=== PATIENT | male | born 1990 | race Caucasian/White ===

== ENCOUNTER 2017-12-12 14:35 | Observation (INO) | payer BC ==
[2017-12-12] MEDS ORDERED: SODIUM CHLORIDE 0.9% 1,000 ML IV STA ×2 (14:58→18:45)
[2017-12-12] MEDS ORDERED: RX INFO: IV CONTRAST WAS GIVEN 1 EACH MISC MISCELLANE PRN (14:59)
--- NOTE | 2017-12-12 15:04 | ED ---
General Adult HPI - General Chief complaint: Abdominal Pain Stated complaint: poss appendicitis, sent by dr poon Time Seen by Provider: 12/12/17 14:46 Source: patient, RN notes reviewed Mode of arrival: ambulatory Limitations: no limitations - History of Present Illness Initial comments: 27 yo male presents to the ER with cc of left lower quadrant abdominal pain. Patient states that he's had this since Monday. There is been nausea vomiting without diarrhea. No fever. He does have a history of hernia surgery to the right side in the past. He went to see his doctor was referred here for concern for appendicitis. He denies any other symptoms at this time with this. Patient denies any recent fever, chills, shortness of breath, chest pain, back pain,numbness or tingling, dysuria or hematuria, constipation or diarrhea, headaches or visual changes, or any other current symptoms. - Related Data Home Medications Medication Instructions Recorded Confirmed No Known Home Medications [No 12/12/17 12/12/17 Known Home Medications] Allergies Allergy/AdvReac Type Severity Reaction Status Date / Time No Known Allergies Allergy Verified 12/12/17 15:34 Review of Systems ROS Statement: Those systems with pertinent positive or pertinent negative responses have been documented in the HPI. ROS Other: All systems not noted in ROS Statement are negative. Past Medical History Additional Past Medical History / Comment(s): Hemophilia History of Any Multi-Drug Resistant Organisms: None Reported Additional Past Surgical History / Comment(s): Hip Past Psychological History: No Psychological Hx Reported Smoking Status: Never smoker Past Alcohol Use History: Occasional Past Drug Use History: None Reported General Exam - General Exam Comments Initial Comments: General: The patient is awake and alert, in no distress, and does not appear acutely ill. Eye: Pupils are equal, round and reactive to light, extra-ocular movements are intact; there is normal conjunctiva bilaterally. No signs of icterus. Ears, nose, mouth and throat: There are moist mucous membranes. Neck: The neck is supple, there is no tenderness. Cardiovascular: There is a regular rate and rhythm. No murmur, rub or gallop is appreciated. Respiratory: Lungs are clear to auscultation, respirations are non-labored, breath sounds are equal. No wheezes, stridor, rales, or rhonchi. Gastrointestinal: Soft, non-distended, tenderness in right lower quadrant of the abdomen without masses or organomegaly noted. There is no rebound or guarding present. No CVA tenderness. Bowel sounds are unremarkable. Back: There is no tenderness to palpation in the midline. There is no obvious deformity. No rashes noted. Musculoskeletal: Normal ROM, no tenderness, There is no pedal edema. There is no calf tenderness or swelling. Sensation intact. Pulses equal bilaterally 2+. Neurological: CN II-XII intact, There are no obvious motor or sensory deficits. Coordination appears grossly intact. Speech is normal. Skin: Skin is warm and dry and no rashes or lesions are noted. Psychiatric: Cooperative, appropriate mood & affect, normal judgment. Limitations: no limitations Course Vital Signs 12/12/17 14:41 Temperature 97.8 F Pulse Rate 78 Respiratory 16 Rate Blood Pressure 130/84 O2 Sat by Pulse 99 Oximetry Medical Decision Making - Medical Decision Making 27-year-old male presents for abdominal pain. At this time CAT scan is been reviewed and on-call surgery was contacted. This time we will patient with antibiotics. Patient is in agreement this plan all questions have been answered. Patient will be made at this time. - Lab Data Result diagrams: 12/12/17 15:15 12/12/17 15:15 Lab Results 12/12/17 12/12/17 12/12/17 Range/Units 15:15 15:15 15:15 WBC 6.5 (3.8-10.6) k/uL RBC 5.46 (4.30-5.90) m/uL Hgb 16.7 (13.0-17.5) gm/dL Hct 45.6 (39.0-53.0) % MCV 83.6 (80.0-100.0) fL MCH 30.7 (25.0-35.0) pg MCHC 36.7 (31.0-37.0) g/dL RDW 12.1 (11.5-15.5) % Plt Count 232 (150-450) k/uL Neutrophils % 72 % Lymphocytes % 19 % Monocytes % 4 % Eosinophils % 3 % Basophils % 0 % Neutrophils # 4.7 (1.3-7.7) k/uL Lymphocytes # 1.2 (1.0-4.8) k/uL Monocytes # 0.3 (0-1.0) k/uL Eosinophils # 0.2 (0-0.7) k/uL Basophils # 0.0 (0-0.2) k/uL PT 10.5 (9.0-12.0) sec INR 1.1 (<1.2) APTT 30.7 H (22.0-30.0) sec Sodium 142 (137-145) mmol/L Potassium 3.9 (3.5-5.1) mmol/L Chloride 101 (98-107) mmol/L Carbon Dioxide 25 (22-30) mmol/L Anion Gap 16 mmol/L BUN 13 (9-20) mg/dL Creatinine 0.88 (0.66-1.25) mg/dL Est GFR (CKD-EPI)AfAm >90 (>60 ml/min/1.73 sqM) Est GFR (CKD-EPI)NonAf >90 (>60 ml/min/1.73 sqM) Glucose 88 (74-99) mg/dL Calcium 10.2 (8.4-10.2) mg/dL Total Bilirubin 0.7 (0.2-1.3) mg/dL AST 26 (17-59) U/L ALT 31 (21-72) U/L Alkaline Phosphatase 70 (38-126) U/L Total Protein 7.9 (6.3-8.2) g/dL Albumin 4.9 (3.5-5.0) g/dL Amylase 53 (30-110) U/L Lipase 149 (23-300) U/L Urine Color Urine Appearance (Clear) Urine pH (5.0-8.0) Ur Specific [place] (1.001-1.035) Urine Protein (Negative) Urine Glucose (UA) (Negative) Urine Ketones (Negative) Urine Blood (Negative) Urine Nitrite (Negative) Urine Bilirubin (Negative) Urine Urobilinogen (<2.0) mg/dL Ur Leukocyte Esterase (Negative) 12/12/17 Range/Units 15:15 WBC (3.8-10.6) k/uL RBC (4.30-5.90) m/uL Hgb (13.0-17.5) gm/dL Hct (39.0-53.0) % MCV (80.0-100.0) fL MCH (25.0-35.0) pg MCHC (31.0-37.0) g/dL RDW (11.5-15.5) % Plt Count (150-450) k/uL Neutrophils % % Lymphocytes % % Monocytes % % Eosinophils % % Basophils % % Neutrophils # (1.3-7.7) k/uL Lymphocytes # (1.0-4.8) k/uL Monocytes # (0-1.0) k/uL Eosinophils # (0-0.7) k/uL Basophils # (0-0.2) k/uL PT (9.0-12.0) sec INR (<1.2) APTT (22.0-30.0) sec Sodium (137-145) mmol/L Potassium (3.5-5.1) mmol/L Chloride (98-107) mmol/L Carbon Dioxide (22-30) mmol/L Anion Gap mmol/L BUN (9-20) mg/dL Creatinine (0.66-1.25) mg/dL Est GFR (CKD-EPI)AfAm (>60 ml/min/1.73 sqM) Est GFR (CKD-EPI)NonAf (>60 ml/min/1.73 sqM) Glucose (74-99) mg/dL Calcium (8.4-10.2) mg/dL Total Bilirubin (0.2-1.3) mg/dL AST (17-59) U/L ALT (21-72) U/L Alkaline Phosphatase (38-126) U/L Total Protein (6.3-8.2) g/dL Albumin (3.5-5.0) g/dL Amylase (30-110) U/L Lipase (23-300) U/L Urine Color Light Yellow Urine Appearance Clear (Clear) Urine pH 6.0 (5.0-8.0) Ur Specific [place] 1.008 (1.001-1.035) Urine Protein Negative (Negative) Urine Glucose (UA) Negative (Negative) Urine Ketones Negative (Negative) Urine Blood Negative (Negative) Urine Nitrite Negative (Negative) Urine Bilirubin Negative (Negative) Urine Urobilinogen <2.0 (<2.0) mg/dL Ur Leukocyte Esterase Negative (Negative) Disposition Clinical Impression: Right lower quadrant abdominal pain Disposition: ADMITTED IP TO THIS [facility] Condition: Stable Referrals: Gilmar Poon MD [Primary Care Provider] - 1-2 days Decision Date: 12/12/17 Decision Time: 18:26
[2017-12-12 15:29] LABS: Basophils % (A) 0 %; Eosinophils # (A) 0.2 k/uL (0-0.7); Eosinophils % (A) 3 %; HCT 45.6 % (39.0-53.0); HGB 16.7 gm/dL (13.0-17.5); Lymphocytes # (A) 1.2 k/uL (1.0-4.8); Lymphocytes % (A) 19 %; MCH 30.7 pg (25.0-35.0); MCHC 36.7 g/dL (31.0-37.0); MCV 83.6 fL (80.0-100.0); Mean Platelet Volume 6.7; Monocytes # (A) 0.3 k/uL (0-1.0); Monocytes % (A) 4 %; Neutrophils # (A) 4.7 k/uL (1.3-7.7); Neutrophils % (A) 72 %; Platelet Count 232 k/uL (150-450); RBC 5.46 m/uL (4.30-5.90); RDW 12.1 % (11.5-15.5); WBC 6.5 k/uL (3.8-10.6)
[2017-12-12 15:30] LABS: Appearance,Urine Clear (Clear); Bilirubin,Urine Negative (Negative); Blood,Urine Negative (Negative); Color,Urine Light Yellow; Glucose,Urine (UA) Negative (Negative); Ketones,Urine Negative (Negative); Leukocyte Esterase,Urine Negative (Negative); Nitrite,Urine Negative (Negative); Protein,Urine Negative (Negative); Specific Gravity,Urine 1.008 (1.001-1.035); Urobilinogen,Urine <2.0 mg/dL (<2.0)
[2017-12-12 15:38] LABS: INR 1.1 (<1.2); Partial Thromboplastin Time 30.7 sec (22.0-30.0); Prothrombin Time 10.5 sec (9.0-12.0)
[2017-12-12 15:41] LABS: ALT 31 U/L (21-72); AST 26 U/L (17-59); Albumin 4.9 g/dL (3.5-5.0); Alkaline Phosphatase 70 U/L (38-126); Amylase 53 U/L (30-110); Anion Gap 16 mmol/L; Blood Urea Nitrogen 13 mg/dL (9-20); Calcium 10.2 mg/dL (8.4-10.2); Carbon Dioxide 25 mmol/L (22-30); Chloride 101 mmol/L (98-107); Glucose 88 mg/dL (74-99); Lipase 149 U/L (23-300); Potassium 3.9 mmol/L (3.5-5.1); Sodium 142 mmol/L (137-145); Total Bilirubin 0.7 mg/dL (0.2-1.3); Total Protein 7.9 g/dL (6.3-8.2)
--- NOTE | 2017-12-12 16:25 | CT ---
EXAMINATION TYPE: CT abdomen pelvis w con DATE OF EXAM: 12/12/2017 COMPARISON: NONE INDICATION: Right lower quadrant pain x 3 days. DLP: 1286 mGycm, Automated exposure control for dose reduction was used. CONTRAST: 100 mL of Isovue M300. Study performed without Oral Contrast TECHNIQUE: Axial images were obtained from above the diaphragm to the pubic rami in the axial plane a t 5 mm thick sections. Reconstructed images are reviewed on the computer in the coronal plane. FINDINGS: Limited CT sections are obtained the lung bases. The lung bases are clear. CT ABDOMEN: Liver: Normal Spleen: Normal Pancreas: Normal Adrenal glands: The adrenal glands are normal. Gallbladder: Normal Kidneys: No masses are evident. No hydronephrosis is present. No cysts are present. Delayed images were obtained through the kidneys, which remain unremarkable. Aorta: Normal Inferior vena cava: Normal. CT PELVIS: Loops of bowel within the abdomen and pelvis are normal. There are loops of bowel which are incom pletely distended or lack oral contrast limiting their evaluation. There appear to be some inflammato ry change adjacent to the distal sigmoid colon junction with the rectum. Suspicious diverticulitis ho wever is not identified. Appendix: Not identified. No dilated tubular structures are evident. There is some mild inflammatory change in this region. Correlate with the patient's surgical history. Urinary bladder: Normal. Genitourinary structures: Prostate is normal. Osseous structures: No suspicious lytic or sclerotic lesions. IMPRESSIONS: 1. There is some nonspecific ill-defined inflammatory type change in the right lower quadrant and wi thin the right hemipelvis of uncertain etiology. The appendix is not identified although no suspiciou s dilated tubular structure is evident. Clinical management of any suspected appendicitis will be req uired. The additional inflammatory changes adjacent to the distal superior sigmoid colon, mild divert iculitis could be considered. Significant diverticular changes are not evident within the sigmoid col on in this patient however. Clinical management is suggested.
--- NOTE | 2017-12-12 18:19 | P.GSHP ---
History of Present Illness H&P Date: 12/12/17 Patient is a 27-year-old white male who presents to the emergency room with a complaint of a several-day history of periumbilical lower abdominal discomfort. The patient denies any fever or chills. The patient denies any nausea or vomiting. The patient states he ate last yesterday but is hungry today. The patient had a computed tomography scan performed of the abdomen and pelvis which revealed nonspecific ill-defined inflammatory type changes in the right lower quadrant and within the right hemipelvis of uncertain etiology. Appendix was not seen although no suspicious dilated tubular structure was evident. Additional inflammation or toes changes adjacent to distal superior sigmoid colon and mild diverticulitis could be considered. The patient's white blood cell count is 6.5. The patient has a history of hemophilia. Past surgical history: 1. Hip surgery 2. Hernia repair Past medical history: Hemophilia a mild he states that it was necessary to take factor VIII before any procedures ALLERGIES: Negative Social history: Smoking: Negative Alcohol: And weekends Marijuana: Negative Review of systems: HEENT: Negative Lungs: Negative Heart: Negative GI: As above : Negative - Constitutional Constitutional: Reports as per HPI - Cardiovascular Cardiovascular: Reports as per HPI - Respiratory Respiratory: Reports as per HPI - Gastrointestinal Gastrointestinal: Reports as per HPI - Genitourinary (Female) Genitourinary: Reports as per HPI - Musculoskeletal Comment: hip surgery - Psychiatric Comment: No psych history noted - Hematologic/Lymphatic Comment: Hemophilia type A Past Medical History Additional Past Medical History / Comment(s): Hemophilia History of Any Multi-Drug Resistant Organisms: None Reported Additional Past Surgical History / Comment(s): Hip. hernia Past Psychological History: No Psychological Hx Reported Smoking Status: Never smoker Past Alcohol Use History: Occasional Past Drug Use History: None Reported Medications and Allergies Home Medications Medication Instructions Recorded Confirmed Type No Known Home Medications [No 12/12/17 12/12/17 History Known Home Medications] Allergies Allergy/AdvReac Type Severity Reaction Status Date / Time No Known Allergies Allergy Verified 12/12/17 15:34 Surgical - Exam Vital Signs Temp Pulse Resp BP Pulse Ox 97.8 F 78 16 130/84 99 12/12/17 14:41 12/12/17 14:41 12/12/17 14:41 12/12/17 14:41 12/12/17 14:41 - General well developed, well nourished, no distress - Eyes normal ocular movement - ENT normal pinna, normal nares, no hearing loss - Neck trachea midline, no venous distension - Respiratory normal expansion, normal respiratory effort, clear to auscultation - Cardiovascular Rhythm: regular Heart Sounds: normal: S1, S2 - Abdomen Mild tender to deep palpation in the lower midabdomen and lower right quadrant No guarding or rebound Abdomen: soft - Integumentary no rash, no growths - Psychiatric oriented to time, oriented to person, oriented to place Results - Labs 12/12/17 15:15 12/12/17 15:15 Abnormal Lab Results - Last 24 Hours (Table) 12/12/17 Range/Units 15:15 APTT 30.7 H (22.0-30.0) sec Diabetes panel 12/12/17 Range/Units 15:15 Sodium 142 (137-145) mmol/L Potassium 3.9 (3.5-5.1) mmol/L Chloride 101 (98-107) mmol/L Carbon Dioxide 25 (22-30) mmol/L BUN 13 (9-20) mg/dL Creatinine 0.88 (0.66-1.25) mg/dL Glucose 88 (74-99) mg/dL Calcium 10.2 (8.4-10.2) mg/dL AST 26 (17-59) U/L ALT 31 (21-72) U/L Alkaline Phosphatase 70 (38-126) U/L Total Protein 7.9 (6.3-8.2) g/dL Albumin 4.9 (3.5-5.0) g/dL Calcium panel 12/12/17 Range/Units 15:15 Calcium 10.2 (8.4-10.2) mg/dL Albumin 4.9 (3.5-5.0) g/dL Pituitary panel 12/12/17 Range/Units 15:15 Sodium 142 (137-145) mmol/L Potassium 3.9 (3.5-5.1) mmol/L Chloride 101 (98-107) mmol/L Carbon Dioxide 25 (22-30) mmol/L BUN 13 (9-20) mg/dL Creatinine 0.88 (0.66-1.25) mg/dL Glucose 88 (74-99) mg/dL Calcium 10.2 (8.4-10.2) mg/dL Adrenal panel 12/12/17 Range/Units 15:15 Sodium 142 (137-145) mmol/L Potassium 3.9 (3.5-5.1) mmol/L Chloride 101 (98-107) mmol/L Carbon Dioxide 25 (22-30) mmol/L BUN 13 (9-20) mg/dL Creatinine 0.88 (0.66-1.25) mg/dL Glucose 88 (74-99) mg/dL Calcium 10.2 (8.4-10.2) mg/dL Total Bilirubin 0.7 (0.2-1.3) mg/dL AST 26 (17-59) U/L ALT 31 (21-72) U/L Alkaline Phosphatase 70 (38-126) U/L Total Protein 7.9 (6.3-8.2) g/dL Albumin 4.9 (3.5-5.0) g/dL - Imaging CT scan - abdomen: report reviewed, image reviewed CT scan - pelvis: report reviewed, image reviewed Assessment and Plan Assessment: Impression/plan: 1. Lower abdominal and right lower quadrant abdominal pain/rule out appendicitis 2. Hemophilia A Plan: 1. Hematology consult 2. Admission and IV antibiotics and observation, patient does not have an acute abdomen at this time 3. Repeat CBC in a.m.
[2017-12-12 20:19] VITALS: BMI 25.2
[2017-12-13] MEDS: PIPERACILLIN-TAZOBACTAM 3.375 GM in DEXTROSE/WATER 1 50ML.BAG IVPB SCH ×2 (00:38→07:43)
[2017-12-13 03:20] VITALS: RESP 15
[2017-12-13 09:32] LABS: ALT 31 U/L (21-72); AST 20 U/L (17-59); Albumin 3.9 g/dL (3.5-5.0); Alkaline Phosphatase 61 U/L (38-126); Anion Gap 11 mmol/L; Blood Urea Nitrogen 12 mg/dL (9-20); Calcium 9.4 mg/dL (8.4-10.2); Carbon Dioxide 26 mmol/L (22-30); Chloride 104 mmol/L (98-107); Glucose 89 mg/dL (74-99); Potassium 4.3 mmol/L (3.5-5.1); Sodium 141 mmol/L (137-145); Total Bilirubin 0.8 mg/dL (0.2-1.3); Total Protein 6.5 g/dL (6.3-8.2)
[2017-12-13 09:35] LABS: Basophils % (A) 1 %; Eosinophils # (A) 0.1 k/uL (0-0.7); Eosinophils % (A) 2 %; HCT 45.3 % (39.0-53.0); HGB 15.7 gm/dL (13.0-17.5); Lymphocytes # (A) 0.7 k/uL (1.0-4.8); Lymphocytes % (A) 13 %; MCH 29.8 pg (25.0-35.0); MCHC 34.7 g/dL (31.0-37.0); MCV 85.9 fL (80.0-100.0); Mean Platelet Volume 6.4; Monocytes # (A) 0.4 k/uL (0-1.0); Monocytes % (A) 7 %; Neutrophils # (A) 4.2 k/uL (1.3-7.7); Neutrophils % (A) 75 %; Platelet Count 217 k/uL (150-450); RBC 5.28 m/uL (4.30-5.90); WBC 5.6 k/uL (3.8-10.6)
[2017-12-13] MEDS ORDERED: MORPHINE SULFATE 4MG/4ML SYRG IVP PRN (09:36)
[2017-12-13] MEDS ORDERED: SODIUM CHLORIDE 0.9% 1,000 ML IV SCH (09:45)
--- NOTE | 2017-12-13 10:59 | P.DS ---
Providers Date of admission: 12/12/17 18:25 Expected date of discharge: 12/13/17 Attending physician: Jane Granger Consults: 12/12/17 18:19 Consult Physician Urgent Consulting Provider: Victoriano Horta Consult Reason/Comments: patient with hemmophellia ? needs OR Do you want consulting provider notified?: Yes Primary care physician: Gilmar Nguyễn Hospital Course: 27-year-old presented to the emergency room with a chief complaint of developing for the last several days. Umbilical lower abdominal discomfort radiating to the right lower quadrant within the right hemipelvis. Patient gives a history of being hemophilia. CAT scan of the abdomen pelvis performed in the emergency room showed nonspecific ill-defined inflammatory type changes in the right lower quadrant within the right concha-pelvis appendix was not seen although no suspicious dilated tubular structure was evident. Patient's white count was 6.5. Patient continued to report having right lower quadrant abdominal discomfort. Increased discomfort with movement nausea sensation no emesis afebrile. Patient was seen by hematology service with recommendations patient be transferred to a tertiary center for higher level of care that if the patient needed to have any procedures done due to his hemophilia history would need to be given factor VIII infusions. Factor VIII infusions are not given at this hospital necessitating the need to transfer the patient to a tertiary center Past surgical history hip surgery, hernia repair per patient report procedure done at [facility]. Past medical history hemophilia with patient reporting it was necessary to have factor VIII before any procedures Impression discharge diagnosis Present on admission periumbilical lower abdominal pain radiating to the right lower quadrant several day duration suspect appendicitis History of a hemophilia History of prior hernia repair with factor VIII infusions given before procedure done at [facility] History of hip surgery with factor VIII infusions given before procedure done at [facility] The above impression and plan of care have been discussed and directed by signing physician. Tatiana Bolton nurse practitioner acting as scribe for signing physician. Patient Condition at Discharge: Stable Plan - Discharge Summary Discharge Rx Participant: Yes New Discharge Prescriptions: No Action No Known Home Medications [No Known Home Medications] Discharge Medication List No Known Home Medications [No Known Home Medications] 12/12/17 [History] Follow up Appointment(s)/Referral(s): Gilmar Nguyễn MD [Primary Care Provider] - 1-2 days Discharge Disposition: DC/TRNS INTERMEDIATE CARE FAC
[2017-12-13 11:10] VITALS: BP 118/66; PULSE 85; TEMP 98.1
--- NOTE | 2017-12-13 12:00 | P.CONS ---
History of Present Illness - Reason for Consult Consult date: 12/13/17 hemophilia A, needs surgery Requesting physician: Jane Granger - Chief Complaint abd pain x 3 days - History of Present Illness Mr. Gipson is a very pleasant 27-year-old male who does not follow with a Hemophilia clinic or a PCP. He has a history of mild hemophilia A. Patient had hernia repair in the , which was when he was diagnosed, denied bleeding crisis or event postoperatively at that time. He had hip surgery in 2010 in [place] and he received factor VIII preventatively postoperatively. Patient has strong family history with 2 bothers having same hemophilia diagnosis, no knowledge of spontaneous bleeds in the family. Patient states no personal spontaneous bleeds or hemarthrosis but, he does bruise easily with minor trauma. He came to the ER with c/o 3 days progressive lower abd pain, he denied fever, vomiting, diarrhea or constipation, his 10 point ROS is otherwise, he feels better today after receiving abx, he has not required pain medications. Patient has no other medical history, only the 2 surgeries. He is not on any medications. Review of Systems 14 point review of systems is as stated in HPI Past Medical History Past Medical History: Blood Disorder Additional Past Medical History / Comment(s): Hemophilia A reqiring factor VIII infusions prophylactically for surgical procedures History of Any Multi-Drug Resistant Organisms: None Reported Past Surgical History: Hernia Repair, Orthopedic Surgery Additional Past Surgical History / Comment(s): Right Hip Arthroplasty. Hernia Repair Past Anesthesia/Blood Transfusion Reactions: No Reported Reaction Past Psychological History: No Psychological Hx Reported Smoking Status: Never smoker Past Alcohol Use History: Occasional Past Drug Use History: None Reported - Past Family History Mother Family Medical History: Diabetes Mellitus Additional Family Medical History / Comment(s): Diet Controlled Type 2 Diabetes Father Family Medical History: Liver Disease Additional Family Medical History / Comment(s): Alcoholism Brother(s) Family Medical History: Blood Disorder Additional Family Medical History / Comment(s): Both 2 brothers have Hemophilia A Sister(s) Family Medical History: No Reported History Additional Family Medical History / Comment(s): 3 sisters - no medical problems Medications and Allergies Home Medications Medication Instructions Recorded Confirmed Type No Known Home Medications [No 12/12/17 12/12/17 History Known Home Medications] Allergies Allergy/AdvReac Type Severity Reaction Status Date / Time No Known Allergies Allergy Verified 12/12/17 15:34 Physical Exam Vitals: Vital Signs Temp Pulse Pulse Resp BP BP Pulse Ox 12/13/17 07:00 98.1 F 85 118/66 95 12/13/17 02:00 97.7 F 63 15 107/66 98 12/12/17 18:46 97.8 F 67 16 112/67 98 12/12/17 14:41 97.8 F 78 16 130/84 99 Intake and Output 12/12/17 12/13/17 12/13/17 22:59 06:59 14:59 Intake Total 703 Balance 703 Intake: Intake, IV Titration 163 Amount Piperacillin-Tazobactam 3 50 .375 gm In Dextrose/Water 1 50ml.bag @ 12.5 mls/hr IVPB Q8HR ARUN Rx#: [id number] Sodium Chloride 0.9% 1, 113 000 ml @ 100 mls/hr IV . Q10H STA Rx#:[id number] Oral 540 Other: Voiding Method Toilet # Voids 1 Weight 91.626 kg - Constitutional General appearance: average body habitus, cooperative, no acute distress - EENT Eyes: anicteric sclerae, EOMI, normal appearance ENT: hearing grossly normal, normal oropharynx - Neck Neck: no lymphadenopathy - Respiratory Respiratory: bilateral: CTA - Cardiovascular Rhythm: regular Heart sounds: normal: S1, S2 leg Peripheral Edema: bilateral: None - Gastrointestinal General gastrointestinal: soft Localized gastrointestinal: tender: RLQ (no rebound pain) - Integumentary Integumentary: normal - Neurologic Neurologic: CNII-XII intact - Musculoskeletal Musculoskeletal: strength equal bilaterally - Psychiatric Psychiatric: A&O x's 3, appropriate affect, intact judgment & insight Results CBC & Chem 7: 12/13/17 08:55 12/13/17 08:55 Labs: Abnormal Lab Results - Last 24 Hours (Table) 12/12/17 12/13/17 Range/Units 15:15 08:55 Lymphocytes # 0.7 L (1.0-4.8) k/uL APTT 30.7 H (22.0-30.0) sec Microbiology - Last 24 Hours (Table) 12/12/17 15:15 Urine Culture - Preliminary Urine,Voided CT scan - abdomen: report reviewed CT scan - pelvis: report reviewed Assessment and Plan (1) Hemophilia A Narrative/Plan: Patient has known hemophilia A, has been prophylactically given factor VIII for surgical procedures. Some records were assessable from [facility], patient did have low factor VIII assay, this did increase but, suspect factor VIII infusion as the increase was noted the day of patient's hip surgery. It has been clarified with pharmacy that factor VIII infusion is not available so, recommendation is for patient to be transferred. Case was discussed with surgical [employer] who communicated with Surgeon and plan is to transfer to [facility]. No acute hematological intervention is needed here. Dr. Russ discussed case with hematology team at [facility] It was discussed with the pt that he needs to establish care with a hemophilia clinic so that he has access with the specialized team. He will be provided him with quick access to the care he needs for his hemophilia. He verbalized understanding and will establish with Hemophilia clinic at [facility]. 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 I agree with dictators note, documented as a scribe.
== END 2017-12-13 12:22 ==
LOC: EC 14:35 → 3SUR 18:25
PROVIDERS: ADMIT Surgery; ATTEND Surgery
DX: R10.31 Right lower quadrant pain (principal); R10.32 Left lower quadrant pain; R10.33 Periumbilical pain; R11.2 Nausea with vomiting, unspecified; D66 Hereditary factor VIII deficiency; Z83.3 Family history of diabetes mellitus; Z96.641 Presence of right artificial hip joint
CPT/HCPCS: 99285; 96361 ×2; 96365; 96366; 36415; 80053 ×2; 82150; 83690; 85025 ×2; 85610; 85730; 81003; 87040; 87086; 74177; G0378 ×2; J2543; Q9967

== ENCOUNTER 2018-05-28 15:04 | Emergency (ER) | payer BC ==
[2018-05-28 16:16] LABS: Basophils % (A) 1 %; Eosinophils # (A) 0.4 k/uL (0-0.7); Eosinophils % (A) 6 %; HCT 43.5 % (39.0-53.0); HGB 15.8 gm/dL (13.0-17.5); Lymphocytes # (A) 1.1 k/uL (1.0-4.8); Lymphocytes % (A) 16 %; MCH 31.7 pg (25.0-35.0); MCHC 36.3 g/dL (31.0-37.0); MCV 87.4 fL (80.0-100.0); Mean Platelet Volume 6.5; Monocytes # (A) 0.4 k/uL (0-1.0); Monocytes % (A) 6 %; Neutrophils # (A) 4.9 k/uL (1.3-7.7); Neutrophils % (A) 71 %; Platelet Count 232 k/uL (150-450); RBC 4.99 m/uL (4.30-5.90); RDW 12.3 % (11.5-15.5); WBC 6.9 k/uL (3.8-10.6)
[2018-05-28 16:26] LABS: INR 1.1 (<1.2); Partial Thromboplastin Time 31.2 sec (22.0-30.0); Prothrombin Time 10.3 sec (9.0-12.0)
[2018-05-28 16:32] LABS: ALT 22 U/L (21-72); AST 25 U/L (17-59); Albumin 4.4 g/dL (3.5-5.0); Alkaline Phosphatase 74 U/L (38-126); Anion Gap 10 mmol/L; Blood Urea Nitrogen 16 mg/dL (9-20); Calcium 9.4 mg/dL (8.4-10.2); Carbon Dioxide 24 mmol/L (22-30); Chloride 106 mmol/L (98-107); Glucose 113 mg/dL (74-99); Potassium 3.6 mmol/L (3.5-5.1); Sodium 140 mmol/L (137-145); Total Bilirubin 0.6 mg/dL (0.2-1.3); Total Protein 7.2 g/dL (6.3-8.2)
[2018-05-28 16:33] LABS: Creatine Kinase 233 U/L (55-170)
[2018-05-28 16:46] LABS: Creatine Kinase MB 0.8 ng/mL (0.0-2.4); Troponin I <0.012 ng/mL (0.000-0.034)
[2018-05-28 17:42] LABS: Appearance,Urine Clear (Clear); Bilirubin,Urine Negative (Negative); Blood,Urine Negative (Negative); Color,Urine Light Yellow; Glucose,Urine (UA) Negative (Negative); Ketones,Urine Negative (Negative); Leukocyte Esterase,Urine Negative (Negative); Nitrite,Urine Negative (Negative); Protein,Urine Negative (Negative); Specific Gravity,Urine 1.005 (1.001-1.035); Urobilinogen,Urine <2.0 mg/dL (<2.0)
--- NOTE | 2018-05-28 18:25 | ED ---
General Adult HPI - General Source: patient, RN notes reviewed Mode of arrival: ambulatory Limitations: no limitations <Davon Marrero - Last Filed: 05/28/18 19:28> <Cindy Javier - Last Filed: 05/29/18 07:56> - General Chief complaint: Arrhythmia/Palpitations Stated complaint: abnormal EKG Time Seen by Provider: 05/28/18 18:19 - History of Present Illness Initial comments: Patient is a 27-year-old male presenting to the emergency room today with a chief complaint of palpitations. Patient does not that he's had some symptoms on and off over the last month. He states over the last 4 days and constant. States his understanding that seems to make it better or worse. Patient denies any specific pain or any other associated symptoms. Patient denies any recent fever, chills, shortness of breath, back pain, abdominal pain, nausea or vomiting, numbness or tingling, headaches or visual changes, or any other complaints. (Davon Marrero) - Related Data Home Medications Medication Instructions Recorded Confirmed No Known Home Medications 12/12/17 12/12/17 Allergies Allergy/AdvReac Type Severity Reaction Status Date / Time No Known Allergies Allergy Verified 05/28/18 15:12 Review of Systems ROS Other: All systems not noted in ROS Statement are negative. <Davon Marrero - Last Filed: 05/28/18 19:28> ROS Other: All systems not noted in ROS Statement are negative. <Cindy Javier P - Last Filed: 05/29/18 07:56> ROS Statement: Those systems with pertinent positive or pertinent negative responses have been documented in the HPI. 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 Hernia Repair Past Anesthesia/Blood Transfusion Reactions: No Reported Reaction Past Psychological History: No Psychological Hx Reported Smoking Status: Never smoker Past Alcohol Use History: Occasional Past Drug Use History: None Reported - Past Family History Mother Family Medical History: Diabetes Mellitus Additional Family Medical History / Comment(s): Diet Controlled Type 2 Diabetes Father Family Medical History: Liver Disease Additional Family Medical History / Comment(s): Alcoholism Brother(s) Family Medical History: Blood Disorder Additional Family Medical History / Comment(s): Both 2 brothers have Hemophilia A Sister(s) Family Medical History: No Reported History Additional Family Medical History / Comment(s): 3 sisters - no medical problems <JanesDavon - Last Filed: 05/28/18 19:28> General Exam Limitations: no limitations <Davon Marrero - Last Filed: 05/28/18 19:28> <Geovanni Javierssshruthi Mckeon - Last Filed: 05/29/18 07:56> - General Exam Comments Initial Comments: General: The patient is awake and alert, in no distress, and does not appear acutely ill. Eye: Pupils are equal, round and reactive to light. Extra-ocular movements are intact. No nystagmus. There is normal conjunctiva bilaterally. No signs of icterus. Ears, nose, mouth and throat: There are moist mucous membranes and no oral lesions. Neck: The neck is supple, there is no tenderness or JVD. Cardiovascular: There is a regular rate and rhythm. No murmur, rub or gallop is appreciated. Respiratory: Lungs are clear to auscultation, respirations are non-labored, breath sounds are equal. No wheezes, stridor, rales, or rhonchi. Musculoskeletal: Normal ROM, no tenderness. Sensation intact. Strength 5/5. Pulses equal bilaterally 2+. Neurological: A&O x 3. CN II-XII intact, There are no obvious motor or sensory deficits. Coordination appears grossly intact. Speech is normal. Skin: Skin is warm and dry and no rashes or lesions are noted. Psychiatric: Cooperative, appropriate mood & affect, normal judgment. (Davon Marrero) Vital Signs 05/28/18 05/28/18 05/28/18 15:10 18:48 19:08 Temperature 98.1 F Pulse Rate 81 74 71 Respiratory 20 16 16 Rate Blood Pressure 128/83 141/86 133/77 O2 Sat by Pulse 100 99 98 Oximetry 05/28/18 19:35 Temperature 98.3 F Pulse Rate 67 Respiratory 18 Rate Blood Pressure 135/69 O2 Sat by Pulse 97 Oximetry EKG Findings - EKG Comments: EKG Findings:: EKG performed at 1554: Shows sinus rhythm with occasional PVC at 68 bpm. ND interval is 118. QRS 90. QT/QTC 396/421. No acute ST changes. <Davon Marrero - Last Filed: 05/28/18 19:28> Medical Decision Making - Lab Data Result diagrams: 05/28/18 16:02 05/28/18 16:02 <Davon Marrero - Last Filed: 05/28/18 19:28> - Lab Data Result diagrams: 05/28/18 16:02 05/28/18 16:02 <Cindy Javier - Last Filed: 05/29/18 07:56> - Medical Decision Making Patient reexamined at this time shows no signs of distress. His EKG shows sinus rhythm with occasional PVCs. Patient does admit that he's been feeling some palpitations over the last month. Patient's vital stable. The emergency room chest x-ray is unremarkable. Patient's labs have been reviewed. Results were discussed with the patient. Patient is advised following up soon his family physician also be given cardiology to follow-up with. Is advised to return here to emergency room symptoms increase worsen. (Davon Marrero) I was available for consultation in the emergency department. The history and physical exam were done by the Midlevel Provider. Medical decision making was done by the Midlevel Provider. The Midlevel Provider did not contact me for this patient's care. I was not directly involved in this patient's care. (Cindy Javier) - Lab Data Lab Results 05/28/18 05/28/18 05/28/18 Range/Units 16:02 16:02 16:02 WBC 6.9 (3.8-10.6) k/uL RBC 4.99 (4.30-5.90) m/uL Hgb 15.8 (13.0-17.5) gm/dL Hct 43.5 (39.0-53.0) % MCV 87.4 (80.0-100.0) fL MCH 31.7 (25.0-35.0) pg MCHC 36.3 (31.0-37.0) g/dL RDW 12.3 (11.5-15.5) % Plt Count 232 (150-450) k/uL Neutrophils % 71 % Lymphocytes % 16 % Monocytes % 6 % Eosinophils % 6 % Basophils % 1 % Neutrophils # 4.9 (1.3-7.7) k/uL Lymphocytes # 1.1 (1.0-4.8) k/uL Monocytes # 0.4 (0-1.0) k/uL Eosinophils # 0.4 (0-0.7) k/uL Basophils # 0.0 (0-0.2) k/uL PT (9.0-12.0) sec INR (<1.2) APTT (22.0-30.0) sec Sodium 140 (137-145) mmol/L Potassium 3.6 (3.5-5.1) mmol/L Chloride 106 (98-107) mmol/L Carbon Dioxide 24 (22-30) mmol/L Anion Gap 10 mmol/L BUN 16 (9-20) mg/dL Creatinine 1.00 (0.66-1.25) mg/dL Est GFR (CKD-EPI)AfAm >90 (>60 ml/min/1.73 sqM) Est GFR (CKD-EPI)NonAf >90 (>60 ml/min/1.73 sqM) Glucose 113 H (74-99) mg/dL Calcium 9.4 (8.4-10.2) mg/dL Total Bilirubin 0.6 (0.2-1.3) mg/dL AST 25 (17-59) U/L ALT 22 (21-72) U/L Alkaline Phosphatase 74 (38-126) U/L Total Creatine Kinase 233 H (55-170) U/L CK-MB (CK-2) 0.8 (0.0-2.4) ng/mL CK-MB (CK-2) Rel Index 0.3 Troponin I <0.012 (0.000-0.034) ng/mL Total Protein 7.2 (6.3-8.2) g/dL Albumin 4.4 (3.5-5.0) g/dL Urine Color Urine Appearance (Clear) Urine pH (5.0-8.0) Ur Specific [place] (1.001-1.035) Urine Protein (Negative) Urine Glucose (UA) (Negative) Urine Ketones (Negative) Urine Blood (Negative) Urine Nitrite (Negative) Urine Bilirubin (Negative) Urine Urobilinogen (<2.0) mg/dL Ur Leukocyte Esterase (Negative) 05/28/18 05/28/18 Range/Units 16:02 Unknown WBC (3.8-10.6) k/uL RBC (4.30-5.90) m/uL Hgb (13.0-17.5) gm/dL Hct (39.0-53.0) % MCV (80.0-100.0) fL MCH (25.0-35.0) pg MCHC (31.0-37.0) g/dL RDW (11.5-15.5) % Plt Count (150-450) k/uL Neutrophils % % Lymphocytes % % Monocytes % % Eosinophils % % Basophils % % Neutrophils # (1.3-7.7) k/uL Lymphocytes # (1.0-4.8) k/uL Monocytes # (0-1.0) k/uL Eosinophils # (0-0.7) k/uL Basophils # (0-0.2) k/uL PT 10.3 (9.0-12.0) sec INR 1.1 (<1.2) APTT 31.2 H (22.0-30.0) sec Sodium (137-145) mmol/L Potassium (3.5-5.1) mmol/L Chloride (98-107) mmol/L Carbon Dioxide (22-30) mmol/L Anion Gap mmol/L BUN (9-20) mg/dL Creatinine (0.66-1.25) mg/dL Est GFR (CKD-EPI)AfAm (>60 ml/min/1.73 sqM) Est GFR (CKD-EPI)NonAf (>60 ml/min/1.73 sqM) Glucose (74-99) mg/dL Calcium (8.4-10.2) mg/dL Total Bilirubin (0.2-1.3) mg/dL AST (17-59) U/L ALT (21-72) U/L Alkaline Phosphatase (38-126) U/L Total Creatine Kinase (55-170) U/L CK-MB (CK-2) (0.0-2.4) ng/mL CK-MB (CK-2) Rel Index Troponin I (0.000-0.034) ng/mL Total Protein (6.3-8.2) g/dL Albumin (3.5-5.0) g/dL Urine Color Light Yellow Urine Appearance Clear (Clear) Urine pH 6.0 (5.0-8.0) Ur Specific [place] 1.005 (1.001-1.035) Urine Protein Negative (Negative) Urine Glucose (UA) Negative (Negative) Urine Ketones Negative (Negative) Urine Blood Negative (Negative) Urine Nitrite Negative (Negative) Urine Bilirubin Negative (Negative) Urine Urobilinogen <2.0 (<2.0) mg/dL Ur Leukocyte Esterase Negative (Negative) Disposition Is patient prescribed a controlled substance at d/c from ED?: No Time of Disposition: 19:29 <Davon Marrero - Last Filed: 05/28/18 19:28> <Cindy Javier - Last Filed: 05/29/18 07:56> Clinical Impression: PVC (premature ventricular contraction), Palpitation Disposition: HOME SELF-CARE Condition: Good Instructions: Heart Palpitations (ED) Additional Instructions: Please follow-up with lunch truck driver/family doctor in the next 2 days of symptoms have not improved. Please return to emergency room if the symptoms increase or worsen or for any other concerns. Referrals: Gilmar Nguyễn MD [Primary Care Provider] - 1-2 days Garry Bearden MD [STAFF PHYSICIAN] - 1-2 days
--- NOTE | 2018-05-28 19:14 | XR ---
EXAMINATION: XR chest 2V DATE AND TIME: 05/28/2018 6:30 PM CLINICAL INDICATION: Palpitations TECHNIQUE: PA and lateral COMPARISON: None. FINDINGS: The lungs are clear. The pleural spaces are negative. The cardiac silhouette is not enlarged. The remainder of the mediastinal silhouette is unremarkable. The skeletal structures and soft tissues are negative for acute findings. IMPRESSION: NO ACUTE PROCESS.
[2018-05-28 19:46] VITALS: BP 135/69; PULSE 67; RESP 18; TEMP 98.3
== END 2018-05-28 19:35 | disposition home or self-care (01) ==
LOC: EC 15:04
DX: I49.3 Ventricular premature depolarization (principal); D66 Hereditary factor VIII deficiency; Z90.49 Acquired absence of other specified parts of digestive tract; Z98.890 Other specified postprocedural states; Z96.641 Presence of right artificial hip joint
CPT/HCPCS: 36415; 71046; 80053; 81003; 82550; 82553; 84484; 85025; 85610; 85730; 93005; 99285

== ENCOUNTER 2018-05-29 12:06 | Emergency (ER) | payer BC ==
[2018-05-29] MEDS ORDERED: SODIUM CHLORIDE 0.9% 500 ML IV ONE (12:42)
--- NOTE | 2018-05-29 12:46 | ED ---
Chest Pain HPI - General Chief Complaint: Chest Pain Stated Complaint: CHEST PRESSURE, PALPATATIONS Time Seen by Provider: 05/29/18 12:23 Source: patient Mode of arrival: ambulatory Limitations: no limitations - History of Present Illness Initial Comments: 27-year-old male patient with past medical history significant for hemophilia A and acid reflux presents to the emergency department today for evaluation of left-sided chest pain. Patient states that chest pain started this morning around 10 AM. States has been intermittent since that time. He describes the pain as an aching pain that occasionally radiates into his back. Patient states he is having some shortness of breath with this. Denies any nausea, vomiting, or sweats. Patient states that he is also having palpitations with this. Patient states he has been having the palpitations intermittently over the last month however for the last 5 days they have been constant. Patient states he was seen and evaluated here yesterday and does have a follow-up appointment with the lacrosse coach on Monday. Patient states that the pain is new today so he presented for evaluation. Patient denies any use of cigarettes. States that he drinks alcohol occasionally on the weekends. Patient denies any recent rash, fever, chills, cough, congestion, abdominal pain , nausea, vomiting, diarrhea, constipation, back pain, numbness, tingling, dizziness, weakness, hematuria, dysuria, urinary urgency, urinary frequency, headache, visual changes, or any other complaints. - Related Data Home Medications Medication Instructions Recorded Confirmed Cimetidine [Tagamet] 300 mg PO BID 05/29/18 05/29/18 Allergies Allergy/AdvReac Type Severity Reaction Status Date / Time No Known Allergies Allergy Verified 05/29/18 14:11 Review of Systems ROS Statement: Those systems with pertinent positive or pertinent negative responses have been documented in the HPI. ROS Other: All systems not noted in ROS Statement are negative. EKG Findings - EKG Comments: EKG Findings:: EKG obtained at 1225 shows normal sinus rhythm with a ventricular rate of 62, FL interval 140, QRS duration 94, QT 408, QTC 414. No evidence of ST elevation or depression. 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 Hernia Repair Past Anesthesia/Blood Transfusion Reactions: No Reported Reaction Past Psychological History: No Psychological Hx Reported Smoking Status: Never smoker Past Alcohol Use History: Occasional Past Drug Use History: None Reported - Past Family History Mother Family Medical History: Diabetes Mellitus Additional Family Medical History / Comment(s): Diet Controlled Type 2 Diabetes Father Family Medical History: Liver Disease Additional Family Medical History / Comment(s): Alcoholism Brother(s) Family Medical History: Blood Disorder Additional Family Medical History / Comment(s): Both 2 brothers have Hemophilia A Sister(s) Family Medical History: No Reported History Additional Family Medical History / Comment(s): 3 sisters - no medical problems General Exam Limitations: no limitations General appearance: alert, in no apparent distress, other (This is a well- developed, well-nourished adult male patient in no acute distress. Vital signs upon presentation are temperature 98.1F, pulse 70, respiration 16, blood pressure 121/86, pulse ox 100% on room air.) Eye exam: Present: normal appearance, PERRL, EOMI. Absent: scleral icterus, conjunctival injection, periorbital swelling ENT exam: Present: normal exam, normal oropharynx, mucous membranes moist Respiratory exam: Present: normal lung sounds bilaterally. Absent: respiratory distress, wheezes, rales, rhonchi, stridor Cardiovascular Exam: Present: regular rate, normal rhythm, normal heart sounds, other (Frequent PVCs). Absent: systolic murmur, diastolic murmur, rubs, gallop , clicks GI/Abdominal exam: Present: soft, normal bowel sounds. Absent: distended, tenderness, guarding, rebound, rigid Neurological exam: Present: alert, oriented X3, CN II-XII intact Psychiatric exam: Present: normal affect, normal mood Skin exam: Present: warm, dry, intact, normal color. Absent: rash Course Vital Signs 05/29/18 05/29/18 05/29/18 12:09 13:25 14:31 Temperature 98.1 F 97.7 F 97.7 F Pulse Rate 70 56 L 63 Respiratory 16 18 18 Rate Blood Pressure 121/86 126/72 116/78 O2 Sat by Pulse 100 97 97 Oximetry Chest Pain MDM - [facility] [place] RAD[facility]OLOG[facility]:Two-view x-ray of the chest is obtained. The cardiomediastinal silhouette, aorta, and pulmonary vasculature within normal limits. Lungs and pleural spaces are clear. Impression by Dr. Sharp shows no acute cardio pulmonary process. 27-year-old male patient with past medical history significant for hemophilia a presents to the emergency department today for evaluation of left-sided chest pain. Patient is also been expressing palpitations. Physical examination is unremarkable. Lungs are clear to auscultation with good air movement. EKG shows normal sinus rhythm. Labs reviewed and are unremarkable. Did discuss findings and results with the patient. He does have an appointment with cardiology for recheck on Monday. Return parameters were discussed in detail. He is instructed to follow-up with his primary care physician as well for further evaluation. He verbalizes understanding and agrees with this plan. Disposition Clinical Impression: Chest pain, PVC (premature ventricular contraction) Disposition: ADMITTED IP TO THIS HOSP Condition: Good Instructions: Chest Pain (ED), Premature Ventricular Contractions (ED) Additional Instructions: Follow-up with cardiology on Monday as you have planned. Return here immediately for any new, worsening, or concerning symptoms. Is patient prescribed a controlled substance at d/c from ED?: No Referrals: Gilmar Nguyễn MD [Primary Care Provider] - 1-2 days Time of Disposition: 14:18
[2018-05-29 13:17] LABS: Basophils % (A) 1 %; Eosinophils # (A) 0.2 k/uL (0-0.7); Eosinophils % (A) 5 %; HCT 46.3 % (39.0-53.0); HGB 15.6 gm/dL (13.0-17.5); Lymphocytes % (A) 22 %; MCH 29.3 pg (25.0-35.0); MCHC 33.6 g/dL (31.0-37.0); MCV 87.3 fL (80.0-100.0); Mean Platelet Volume 6.7; Monocytes # (A) 0.2 k/uL (0-1.0); Monocytes % (A) 5 %; Neutrophils % (A) 66 %; Platelet Count 238 k/uL (150-450); RBC 5.31 m/uL (4.30-5.90); RDW 12.3 % (11.5-15.5); WBC 4.5 k/uL (3.8-10.6)
[2018-05-29 13:22] LABS: ALT 24 U/L (21-72); AST 26 U/L (17-59); Albumin 4.5 g/dL (3.5-5.0); Alkaline Phosphatase 60 U/L (38-126); Anion Gap 11 mmol/L; Blood Urea Nitrogen 11 mg/dL (9-20); Calcium 9.6 mg/dL (8.4-10.2); Carbon Dioxide 24 mmol/L (22-30); Chloride 107 mmol/L (98-107); Glucose 91 mg/dL (74-99); INR 1.1 (<1.2); Partial Thromboplastin Time 30.3 sec (22.0-30.0); Potassium 4.1 mmol/L (3.5-5.1); Prothrombin Time 10.7 sec (9.0-12.0); Sodium 142 mmol/L (137-145); Total Bilirubin 0.8 mg/dL (0.2-1.3); Total Protein 7.4 g/dL (6.3-8.2)
[2018-05-29 13:25] VITALS: RESP 18; TEMP 97.7
[2018-05-29 13:41] LABS: Creatine Kinase 195 U/L (55-170)
[2018-05-29 13:54] LABS: Creatine Kinase MB 0.5 ng/mL (0.0-2.4); Troponin I <0.012 ng/mL (0.000-0.034)
--- NOTE | 2018-05-29 14:02 | XR ---
EXAMINATION TYPE: XR chest 2V DATE OF EXAM: 05/29/2018 COMPARISON: 05/28/2018 HISTORY: 27-year-old male with chest pain TECHNIQUE: Frontal and lateral views FINDINGS: The cardiomediastinal silhouette, aorta, and pulmonary vasculature are within normal limits. Lungs an d pleural spaces are clear. IMPRESSION: No acute cardiopulmonary process.
[2018-05-29 14:34] VITALS: BP 116/78; PULSE 63
== END 2018-05-29 14:31 | disposition other institution (70) ==
LOC: EC 12:06
DX: I49.3 Ventricular premature depolarization (principal); Z79.899 Other long term (current) drug therapy
CPT/HCPCS: 36415; 71046; 80053; 82550; 82553; 83735; 84484; 85025; 85610; 85730; 93005; 96360; 99285